=== PATIENT | male | born 1960 | race Hispanic/Latino ===

== ENCOUNTER 2019-11-20 21:49 | Observation (INO) | payer MEDICAID ==
[2019-11-20] MEDS ORDERED: ASPIRIN 325 MG TAB PO ONE (22:14)
[2019-11-20] MEDS ORDERED: NITROGLYCERIN 2% OINT 1 GM TP ONE (22:14)
[2019-11-20] MEDS ORDERED: ONDANSETRON 4 MG/2 ML INJ IV ONE (22:15)
[2019-11-20] MEDS ORDERED: MORPHINE 4 MG/1 ML INJ IV ONE ×2 (22:15→23:44)
--- NOTE | 2019-11-20 22:23 | Emergency Department Report ---
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 Pain described as a constant pain that feels like someone is walking on his chest. Positive nausea with associated vomiting and shortness of breath. Patient received sublingual nitro and aspirin prior to arrival. Patient denies previous history of CAD, smoking, family history of CAD, has never had a stress test or cardiac cath. Patient denies smoking cigarettes and has not abuse any substances in several years. Severity scale (0 -10): 10 - Related Data Home Medications Medication Instructions Recorded Confirmed Last Taken Losartan-Hctz 100-25 mg Tab 25 mg PO ONCE 11/21/19 11/21/19 11/20/19 Lovastatin [Altoprev] 20 mg PO BID 11/21/19 11/21/19 11/20/19 Metoclopramide [Reglan INJ] 10 mg IV PRN 11/21/19 11/21/19 Unknown Omeprazole 40 mg PO ONCE 11/21/19 11/21/19 11/20/19 QUEtiapine [SEROquel] 100 mg PO BID 11/21/19 11/21/19 11/20/19 Sucralfate 1 mg PO BID 11/21/19 11/21/19 11/20/19 Sucralfate [Carafate] 1 gm PO BID 11/21/19 11/21/19 11/20/19 glyBURIDE [Glyburide] 1.25 mg PO DAILY 11/21/19 11/21/19 11/20/19 1.25mg Allergies Allergy/AdvReac Type Severity Reaction Status Date / Time No Known Allergies Allergy Verified 11/21/19 00:34 Heart Score - HEART Score History: Moderately suspicious EKG: Significant ST-depression Age: 45-65 Risk factors: > 3 risk factors or hx of atherosclerotic disease Troponin: < normal limit HEART Score: 6 ED Review of Systems ROS: Stated complaint: CHEST PAIN Other details as noted in HPI Comment: All other systems reviewed and negative ED Past Medical Hx - Past Medical History Previous Medical History?: Yes Hx Hypertension: Yes Hx Diabetes: Yes - Surgical History Past Surgical History?: Yes Additional Surgical History: bilat BKA - Social History Smoking Status: Unknown if ever smoked Substance Use Type: None - Medications Home Medications: Home Medications Medication Instructions Recorded Confirmed Last Taken Type Losartan-Hctz 100-25 mg Tab 25 mg PO ONCE 11/21/19 11/21/19 11/20/19 History Lovastatin [Altoprev] 20 mg PO BID 11/21/19 11/21/19 11/20/19 History Metoclopramide [Reglan INJ] 10 mg IV PRN 11/21/19 11/21/19 Unknown History Omeprazole 40 mg PO ONCE 11/21/19 11/21/19 11/20/19 History QUEtiapine [SEROquel] 100 mg PO BID 11/21/19 11/21/19 11/20/19 History Sucralfate 1 mg PO BID 11/21/19 11/21/19 11/20/19 History Sucralfate [Carafate] 1 gm PO BID 11/21/19 11/21/19 11/20/19 History glyBURIDE [Glyburide] 1.25 mg PO DAILY 11/21/19 11/21/19 11/20/19 History 1.25mg ED Physical Exam - General Limitations: No Limitations - Other Other exam information: General: Mild distress secondary to pain, nausea, and vomiting Head: Atraumatic Eyes: normal appearance ENT: Moist mucous membranes Neck: Normal appearance, no midline tenderness Chest: Clear to auscultation bilaterally, left-sided upper chest wall tenderness to palpation CV: Regular rate and rhythm Abdomen: Soft, normal bowel sounds, nontender, nondistended, no rebound or guarding Back: Normal inspection Extremity: Bilateral BKA Neuro: Alert O x 3, no facial asymmetry, speech clear, no gross motor sensory deficit Psych: Appropriate behavior Skin: No rash ED Course Vital Signs 11/20/19 11/20/19 11/20/19 22:09 22:14 23:00 Temperature 97.6 F Pulse Rate 92 H 86 Respiratory 14 14 15 Rate Blood Pressure 147/78 135/82 Blood Pressure 147/78 [Right] O2 Sat by Pulse 98 98 95 Oximetry 11/20/19 11/20/1920 23:19 23:30 00:00 Temperature Pulse Rate 83 82 81 Respiratory 15 16 14 Rate Blood Pressure 135/82 129/83 134/82 Blood Pressure [Right] O2 Sat by Pulse 94 95 95 Oximetry 11/21/19 11/21/19 11/21/19 00:30 01:00 01:31 Temperature Pulse Rate 85 86 86 Respiratory 15 15 14 Rate Blood Pressure 137/75 139/82 125/68 Blood Pressure [Right] O2 Sat by Pulse 95 94 96 Oximetry 11/21/19 11/21/19 02:00 02:30 Temperature Pulse Rate 87 83 Respiratory 13 13 Rate Blood Pressure 115/66 120/73 Blood Pressure [Right] O2 Sat by Pulse 96 96 Oximetry - Reevaluation(s) Reevaluation #1: 11/20/19 23:45 Patient received morphine 4 mg, Zofran 4 mg, and Nitropaste and pain decreased from 05/27-03/26 - Consultations Consultation #1: 11/20/19 23:[address] Gonzalez on-call calibration specialist who agrees the patient does have some ST depression in 1 and aVL. Does not recommend heparin or Lovenox at this time. If enzymes begin to increase he recommends heparin drip be initiated at that time. AMANDA score - Amanda Score Age > 65: (0) No Aspirin use within the Past 7 Days: (0) No 3 or more CAD Risk Factors: (1) Yes 2 or more Angina events in past 24 hrs: (1) Yes Known CAD with more than 50% Stenosis: (0) No Elevated Cardiac Markers: (0) No ST Deviation Greater than 0.5mm: (0) No AMANDA Score: 2 ED Medical Decision Making - Lab Data Result diagrams: 11/20/19 22:32 11/20/19 22:32 Lab Results 11/20/19 11/20/19 11/20/19 Range/Units 22:32 22:32 22:32 WBC 11.1 H (4.5-11.0) K/mm3 RBC 4.87 (3.65-5.03) M/mm3 Hgb 14.4 (11.8-15.2) gm/dl Hct 41.8 (35.5-45.6) % MCV 86 (84-94) fl MCH 30 (28-32) pg MCHC 35 H (32-34) % RDW 14.4 (13.2-15.2) % Plt Count 224 (140-440) K/mm3 Lymph % (Auto) 10.6 L (13.4-35.0) % [place] % (Auto) 5.8 (0.0-7.3) % Eos % (Auto) 3.9 (0.0-4.3) % Baso % (Auto) 0.5 (0.0-1.8) % Lymph # 1.2 (1.2-5.4) K/mm3 [place] # 0.6 (0.0-0.8) K/mm3 Eos # 0.4 (0.0-0.4) K/mm3 Baso # 0.1 (0.0-0.1) K/mm3 Seg Neutrophils % 79.2 H (40.0-70.0) % Seg Neutrophils # 8.8 H (1.8-7.7) K/mm3 PT 12.6 (12.2-14.9) Sec. INR 0.93 (0.87-1.13) APTT 28.6 (24.2-36.6) Sec. Sodium 140 (137-145) mmol/L Potassium 3.9 (3.6-5.0) mmol/L Chloride 102.7 (98-107) mmol/L Carbon Dioxide 23 (22-30) mmol/L Anion Gap 18 mmol/L BUN 16 (9-20) mg/dL Creatinine 1.0 (0.8-1.5) mg/dL Estimated GFR > 60 ml/min BUN/Creatinine Ratio 16 % Glucose 232 H (75-100) mg/dL Calcium 9.1 (8.4-10.2) mg/dL Total Bilirubin 0.30 (0.1-1.2) mg/dL AST 19 (5-40) units/L ALT 14 (7-56) units/L Alkaline Phosphatase 93 (35-129) units/L Troponin T 0.012 (0.00-0.029) ng/mL Total Protein 7.2 (6.3-8.2) g/dL Albumin 3.9 (3.9-5) g/dL Albumin/Globulin Ratio 1.2 % - EKG Data -: EKG Interpreted by [facility] EKG shows normal: sinus rhythm, ST-T waves (Mild ST depression in 1 and aVL, no ST elevation) Rate: normal (92) - EKG Data When compared to previous EKG there are: previous EKG unavailable - Radiology Data Radiology results: report reviewed CHEST 1 VIEW INDICATION / CLINICAL INFORMATION: Chest Pain. COMPARISON: None available. FINDINGS: SUPPORT DEVICES: None. HEART / MEDIASTINUM: No significant abnormality. LUNGS / PLEURA: No significant pulmonary or pleural abnormality. No pneumothorax. ADDITIONAL FINDINGS: No significant additional findings. IMPRESSION: 1. No significant change - Medical Decision Making Patient presents with cardiac risk factors and chest pain and mild depression in the lateral leads. Case discussed with calibration specialist on-call and does not recommend intervention or anti-coagulants at this time. Patient was provided aspirin prior to arrival and Nitropaste, morphine, and Zofran in the ED. Front Desk Worker Dr. Gonzalez recommends heparin if cardiac enzymes increase. Plan to admit patient to the hospitalist service for admission - Differential Diagnosis UT, unstable angina, atypical chest pain, costochondritis Critical Care Time: No Critical care attestation.: If time is entered above; I have spent that time in minutes in the direct care of this critically ill patient, excluding procedure time. ED Disposition Clinical Impression: Chest pain, Diabetes, History of below-knee amputation of both lower extremities Disposition: -09 OP ADMIT IP TO THIS HOSP Is pt being admited?: Yes Condition: Stable Time of Disposition: 23:56 (Dr Roach/[facility])
[2019-11-20 22:47] LABS: Basophils # (Auto) 0.1 K/mm3 (0.0-0.1); Basophils % (Auto) 0.5 % (0.0-1.8); Eosinophils # (Auto) 0.4 K/mm3 (0.0-0.4); Eosinophils % (Auto) 3.9 % (0.0-4.3); Hematocrit 41.8 % (35.5-45.6); Hemoglobin 14.4 gm/dl (11.8-15.2); Lymphocytes # (Auto) 1.2 K/mm3 (1.2-5.4); Lymphocytes % (Auto) 10.6 % (13.4-35.0); Mean Corpuscular HGB Conc 35 % (32-34); Mean Corpuscular Volume 86 fl (84-94); Monocytes # (Auto) 0.6 K/mm3 (0.0-0.8); Monocytes % (Auto) 5.8 % (0.0-7.3); Platelet Count 224 K/mm3 (140-440); Red Blood Count 4.87 M/mm3 (3.65-5.03); Red Cell Distribution Width 14.4 % (13.2-15.2)
[2019-11-20 22:56] LABS: INR 0.93 (0.87-1.13); Partial Thromboplastin Time 28.6 Sec. (24.2-36.6)
[2019-11-20 23:12] LABS: Alanine Aminotransferase 14 units/L (7-56); Albumin 3.9 g/dL (3.9-5); BUN/Creatinine Ratio 16; Blood Urea Nitrogen 16 mg/dL (9-20); Calcium 9.1 mg/dL (8.4-10.2); Hemolysis Index 14
--- NOTE | 2019-11-20 23:42 | XRay Report ---
CHEST 1 VIEW INDICATION / CLINICAL INFORMATION: Chest Pain. COMPARISON: None available. FINDINGS: SUPPORT DEVICES: None. HEART / MEDIASTINUM: No significant abnormality. LUNGS / PLEURA: No significant pulmonary or pleural abnormality. No pneumothorax. ADDITIONAL FINDINGS: No significant additional findings. IMPRESSION: 1. No significant change Signer Name: Anoop García MD Signed: 11/20/2019 11:38 PM Workstation Name: [id number]
[2019-11-21] MEDS ORDERED: MORPHINE 4 MG/1 ML INJ IV PRN (00:20)
[2019-11-21] MEDS ORDERED: ONDANSETRON 4 MG/2 ML INJ IV PRN (00:20)
[2019-11-21] MEDS ORDERED: ACETAMINOPHEN 325 MG TAB PO PRN (00:20)
[2019-11-21] MEDS ORDERED: NITROGLYCERIN 0.4 MG TAB SUBL SL PRN (00:20)
[2019-11-21] MEDS ORDERED: SODIUM CHLORIDE 0.9% 1000 ML 1,000 ML IV SCH (00:30)
--- NOTE | 2019-11-21 00:36 | History and Physical Report ---
History of Present Illness Date of examination: 11/21/19 Date of admission: 11/21/2019 Chief complaint: Chest pain History of present illness: Patient is 59-year-old male with IDDM and hypertension who presents to ER with complaints of chest pain. Patient reports sudden onset of midsternal chest pain, rates it as 8 out of 10, described as crushing , with radiation to the left arm. Patient states worsening symptoms over the last couple hours with his pain accompanied by nausea, sweats and clammy skin. Patient transported to [facility] via private vehicle, seen and evaluated in ED. Patient admitted for further evaluation of his chest pain and had cardiology consult placed in the emergency department. Past History Past Medical History: other (As noted in HPI) Past Surgical History: Other (bilateral BKA) Family history: CAD, diabetes, hypertension Medications and Allergies Allergies Allergy/AdvReac Type Severity Reaction Status Date / Time No Known Allergies Allergy Verified 11/21/19 00:34 Active Meds: Active Medications Acetaminophen (Tylenol) 650 mg PO Q4H PRN PRN Reason: Pain MILD(1-3)/Fever >100.5/HACKETT Aspirin (Ecotrin) 325 mg PO QDAY DALIA Atorvastatin Calcium (Lipitor) 40 mg PO QHS DALIA Famotidine (Pepcid) 10 mg IV BID DALIA Heparin Sodium (Porcine) (Heparin) 5,000 unit SUB-Q Q12HR DALIA Sodium Chloride (Nacl 0.9% 1000 Ml) 1,000 mls @ 125 mls/hr IV DIRECT DALIA Morphine Sulfate (Morphine) 4 mg IV Q4H PRN PRN Reason: Pain , Severe (7-10) Nitroglycerin (Nitrostat) 0.4 mg SL .Q5MIN PRN PRN Reason: Chest Pain Ondansetron HCl (Zofran) 4 mg IV Q8H PRN PRN Reason: Nausea And Vomiting Sodium Chloride (Sodium Chloride Flush Syringe 10 Ml) 10 ml IV BID DALIA Sodium Chloride (Sodium Chloride Flush Syringe 10 Ml) 10 ml IV PRN PRN PRN Reason: LINE FLUSH Exam - Physical Exam Narrative exam: - Physical Exam Narrative exam: General appearance: Present: Mild distress noted - EENT Eyes: Present: PERRL ENT: hearing intact, clear oral mucosa - Neck Neck: Present: supple, normal ROM - Respiratory Respiratory effort: normal Respiratory: bilateral: Clear to auscultation - Cardiovascular Heart Sounds: Present: S1 & S2. Absent: rub, click - Extremities Extremities: biLateral BKA Peripheral Pulses: within normal limits - Abdominal General gastrointestinal: Present: , non-distended, normal bowel sounds genitourinary: Present: normal - Integumentary Integumentary: Present: clear, warm, dry - Musculoskeletal Musculoskeletal: strength equal bilaterally - Psychiatric Psychiatric: appropriate mood/affect, intact judgment & insight - Neurologic Neurologic: CNII-XII intact, moves all extremities - Constitutional Vitals: Temp Pulse Resp BP Pulse Ox 97.6 F 86 15 135/82 95 11/20/19 22:09 11/20/19 23:00 11/20/19 23:00 11/20/19 23:00 11/20/19 23:00 AMANDA score - Amanda Score Age > 65: (0) No Aspirin use within the Past 7 Days: (0) No 3 or more CAD Risk Factors: (1) Yes 2 or more Angina events in past 24 hrs: (1) Yes Known CAD with more than 50% Stenosis: (0) No Elevated Cardiac Markers: (0) No ST Deviation Greater than 0.5mm: (0) No AMANDA Score: 2 Results - Labs CBC & Chem 7: 11/20/19 22:32 11/20/19 22:32 Labs: Laboratory Last Values WBC 11.1 K/mm3 (4.5-11.0) H 11/20/19 22:32 RBC 4.87 M/mm3 (3.65-5.03) 11/20/19 22:32 Hgb 14.4 gm/dl (11.8-15.2) 11/20/19 22:32 Hct 41.8 % (35.5-45.6) 11/20/19 22:32 MCV 86 fl (84-94) 11/20/19 22:32 MCH 30 pg (28-32) 11/20/19 22:32 MCHC 35 % (32-34) H 11/20/19 22:32 RDW 14.4 % (13.2-15.2) 11/20/19 22:32 Plt Count 224 K/mm3 (140-440) 11/20/19 22:32 Lymph % (Auto) 10.6 % (13.4-35.0) L 11/20/19 22:32 [place] % (Auto) 5.8 % (0.0-7.3) 11/20/19 22:32 Eos % (Auto) 3.9 % (0.0-4.3) 11/20/19 22:32 Baso % (Auto) 0.5 % (0.0-1.8) 11/20/19 22:32 Lymph # 1.2 K/mm3 (1.2-5.4) 11/20/19 22:32 Rabun # 0.6 K/mm3 (0.0-0.8) 11/20/19 22: Eos # 0.4 K/mm3 (0.0-0.4) 11/20/19 22: Baso # 0.1 K/mm3 (0.0-0.1) 11/20/19 22: Seg Neutrophils % 79.2 % (40.0-70.0) H 11/20/19 22: Seg Neutrophils # 8.8 K/mm3 (1.8-7.7) H 11/20/19 22:32 PT 12.6 Sec. (12.2-14.9) 11/20/19 22:32 INR 0.93 (0.87-1.13) 11/20/19 22: APTT 28.6 Sec. (24.2-36.6) 11/20/19 22:32 Sodium 140 mmol/L (137-145) 11/20/19 22:32 Potassium 3.9 mmol/L (3.6-5.0) 11/20/19 22:32 Chloride 102.7 mmol/L (98-107) 11/20/19 22:32 Carbon Dioxide 23 mmol/L (22-30) 11/20/19 22:32 Anion Gap 18 mmol/L 11/20/19 22:32 BUN 16 mg/dL (9-20) 11/20/19 22:32 Creatinine 1.0 mg/dL (0.8-1.5) 11/20/19 22:32 Estimated GFR > 60 ml/min 11/20/19 22:32 BUN/Creatinine Ratio 16 % 11/20/19 22:32 Glucose 232 mg/dL (75-100) H 11/20/19 22:32 Calcium 9.1 mg/dL (8.4-10.2) 11/20/19 22:32 Total Bilirubin 0.30 mg/dL (0.1-1.2) 11/20/19 22:32 AST 19 units/L (5-40) 11/20/19 22:32 ALT 14 units/L (7-56) 11/20/19 22:32 Alkaline Phosphatase 93 units/L (35-129) 11/20/19 22:32 Troponin T 0.012 ng/mL (0.00-0.029) 11/20/19 22:32 Total Protein 7.2 g/dL (6.3-8.2) 11/20/19 22:32 Albumin 3.9 g/dL (3.9-5) 11/20/19 22:32 Albumin/Globulin Ratio 1.2 % 11/20/19 22:32 - Imaging and Cardiology EKG: report reviewed (Mild ST depression in 1 and aVL) Chest x-ray: report reviewed Imaging and Cardiology: CHEST 1 VIEW INDICATION / CLINICAL INFORMATION: Chest Pain. COMPARISON: None available. FINDINGS: SUPPORT DEVICES: None. HEART / MEDIASTINUM: No significant abnormality. LUNGS / PLEURA: No significant pulmonary or pleural abnormality. No pneumothorax. ADDITIONAL FINDINGS: No significant additional findings. IMPRESSION: 1. No significant change Assessment and Plan Assessment and plan: Atypical chest pain, -need to rule out ACS -will admit to telemetry bed -monitor with serial CE and EKG -will place on Aspirin, statin -as needed SL NTG and iv morphine for pain -Monitor BP, add betablocker and ACEI if BP tolerates -Cardiology consulted in ED Hypertension -Home meds once reconciled -Monitor BP q shift IDDM -POC BG monitoring -SSI coverage prn DVT prophylaxis -Heparin subcu Advance Directives: No VTE prophylaxis?: Chemical Plan of care discussed with patient/family: Yes
[2019-11-21] MEDS ORDERED: DEXTROSE 50% IN WATER (25GM) 50 ML SYRINGE IV PRN (02:32)
[2019-11-21 07:16] LABS: Chol/HDL Ratio 4.09 %
[2019-11-21] MEDS: INSULIN LISPRO 100 UNIT/ML SUB-Q SCH ×4 (08:17→22:50)
[2019-11-21] MEDS ORDERED: ASPIRIN EC 325 MG TAB PO ONE (08:47)
[2019-11-21] MEDS ORDERED: ASPIRIN EC 325 MG TAB PO SCH (10:00)
[2019-11-21] MEDS: SODIUM CHLORIDE 0.9% 500 ML 500 ML IV SCH ×2 (10:00→10:39)
[2019-11-21] MEDS ORDERED: HEPARIN/NS 5000 UNIT/500ML 1,000 ML IR ONE (10:09)
[2019-11-21] MEDS: fentaNYL 100 MCG/2 ML INJ ONE ×2 (10:37→10:44)
[2019-11-21] MEDS: MIDAZOLAM 2 MG/2 ML INJ ONE ×2 (10:37→10:44)
[2019-11-21] MEDS: VERAPAMIL 5 MG/2 ML INJ ONE ×3 (10:38→10:48)
[2019-11-21] MEDS: LIDOCAINE (2%) 20 MG/1 ML VIAL 20 ML MDV INFILTRATI ONE ×3 (10:38→10:48)
[2019-11-21] MEDS: HEPARIN 10,000 UNITS/10 ML VIAL ONE ×3 (10:38→10:48)
[2019-11-21] MEDS: NITROGLYCERIN SYRINGE 3 ML ONE ×2 (10:39→10:48)
[2019-11-21] MEDS ORDERED: HEPARIN/ 0.45% NACL DRIP 25,000 UNIT/500 ML BAG ONE (10:59)
--- NOTE | 2019-11-21 11:27 | Cardiac Catherization Report ---
CARDIAC CATHETERIZATION REFERRING PHYSICIAN: Dr. Pickens. INDICATION FOR PROCEDURE: The patient is a pleasant 59-year-old male here for chest pain, history of diabetes, bilateral BKA due to diabetes, lives in [place], here with chest pain, abnormal cardiac enzymes, non-STEMI, referred for left heart catheterization. Risks, benefits, and alternatives explained in length prior to obtaining informed consent. PROCEDURE IN DETAIL: The patient was brought to catheterization lab in a postabsorptive state, prepped and draped in sterile fashion. Ignacio's test in right hand was normal. A 2 mL of 2% lidocaine used to anesthetize the right wrist. A standard 6-Kazakh hydrophilic sheath used to cannulate the right radial artery via modified Seldinger technique. All exchanges performed to exchange a J-tip guidewire. JL3.5 catheter was used to engage the left main. No dampening or ventricularization. Cineangiography performed in all projections. JR4 catheters cross the aortic valve under fluoroscopic guidance. Left ventriculography performed in in 30 GARRETT and 30 CAP[place]AN projections via hand injections, catheter flushed. Manual pullback performed with continuous pressure monitoring Catheter used to engage the right coronary. No dampening or ventricularization. Cineangiography performed in all projections. Next, catheter removed from the body of wire, sheath removed. Manual pressure used to achieve hemostasis. DATA: Aortic pressure is 130/70, LV pressure is 130, LVP of 15 mmHg. Left ventriculography revealed normal systolic performance with estimated ejection fraction of 55-60%. No evidence of aortic stenosis. CORONARY ANATOMY: Left main without significant disease, bifurcates left anterior descending and left circumflex. Left circumflex is a moderate sized vessel and OM trunk has a chronic total occlusion in the proximal segment. LAD with an eccentric 70-80% stenosis proximally. Right coronary with a 90% stenosis in the mid segment. AMANDA 3 flow throughout the coronary tree. I directly supervised the administration of moderate sedation from 10:46-11:15 a.m. with fentanyl and Versed. The patient is clinically stable, chest pain free. CONCLUSIONS: Severe and diffuse triple vessel disease with 70-80% proximal LAD, subtotal occlusion of OM1 and 90% mid right coronary, AMANDA 3 flow throughout. Preserved LV function. Given his history and diffuse nature of disease, I believe complete revascularization with coronary bypass surgery is the best option. He is clinically stable, chest pain free, electrically stable as well. At this point, we will initiate transfer to [facility] for coronary bypass surgery. Further plans contingent on these results. He will follow up with us in the office afterwards. JOB# [id number] CROW/NTS
[2019-11-21] MEDS ORDERED: FLU VACC QUAD 2019-20 (3 YR UP)/PF 60 MCG/0.5 ML SYRINGE IM ONE (12:00)
[2019-11-21] MEDS: HEPARIN 5,000 UNIT/1 ML VIAL SUB-Q SCH ×2 (12:07→22:50)
[2019-11-21] MEDS: FAMOTIDINE 20 MG/2 ML INJ IV SCH ×2 (12:08→22:52)
--- NOTE | 2019-11-21 14:12 | Progress Note ---
Assessment and Plan Assessment and plan: Chest pain. Continue to follow cardiac isoenzymes and EKG. Continue aspirin and statin. Cardiology consulted and opted for cardiac catheterization. Await results. Hypertension. Continue antihypertensive medications. Diabetes mellitus type 2. Continue sliding scale insulin and Accu-Cheks. History Interval history: No new issues overnight. Hospitalist Physical - Constitutional Vitals: Temp Pulse Resp BP Pulse Ox 98 F 76 19 134/80 95 11/21/19 11:45 11/21/19 14:00 11/21/19 14:00 11/21/19 14:00 11/21/19 14:00 General appearance: Present: no acute distress, well-nourished - EENT Eyes: Present: PERRL, EOM intact ENT: hearing intact, clear oral mucosa, dentition normal - Neck Neck: Present: supple, normal ROM - Respiratory Respiratory effort: normal Respiratory: bilateral: CTA - Cardiovascular Rhythm: regular Heart Sounds: Present: S1 & S2. Absent: gallop, rub - Extremities Extremities: no ischemia, No edema, Full ROM - Abdominal General gastrointestinal: soft, non-tender, non-distended, normal bowel sounds - Integumentary Integumentary: Present: clear, warm, dry - Neurologic Neurologic: CNII-XII intact, moves all extremities AMANDA score - Amanda Score Age > 65: (0) No Aspirin use within the Past 7 Days: (0) No 3 or more CAD Risk Factors: (1) Yes 2 or more Angina events in past 24 hrs: (1) Yes Known CAD with more than 50% Stenosis: (0) No Elevated Cardiac Markers: (0) No ST Deviation Greater than 0.5mm: (0) No AMANDA Score: 2 Results - Labs CBC & Chem 7: 11/20/19 22:32 11/20/19 22:32 Labs: Laboratory Last Values WBC 11.1 K/mm3 (4.5-11.0) H 11/20/19 22:32 RBC 4.87 M/mm3 (3.65-5.03) 11/20/19 22:32 Hgb 14.4 gm/dl (11.8-15.2) 11/20/19 22:32 Hct 41.8 % (35.5-45.6) 11/20/19 22:32 MCV 86 fl (84-94) 11/20/19 22:32 MCH 30 pg (28-32) 11/20/19: MCHC 35 % (32-34) H 11/20/19: RDW 14.4 % (13.2-15.2) 11/20/19: Plt Count 224 K/mm3 (140-440) 11/20/19 22: Lymph % (Auto) 10.6 % (13.4-35.0) L 11/20/19: Grand % (Auto) 5.8 % (0.0-7.3) 11/20/19: Eos % (Auto) 3.9 % (0.0-4.3) 11/20/19: Baso % (Auto) 0.5 % (0.0-1.8) 11/20/19: Lymph # 1.2 K/mm3 (1.2-5.4) 11/20/19: Grand # 0.6 K/mm3 (0.0-0.8) 11/20/19: Eos # 0.4 K/mm3 (0.0-0.4) 11/20/19: Baso # 0.1 K/mm3 (0.0-0.1) 11/20/19: Seg Neutrophils % 79.2 % (40.0-70.0) H 11/20/19: Seg Neutrophils # 8.8 K/mm3 (1.8-7.7) H 11/20/19: PT 12.6 Sec. (12.2-14.9) 11/20/19: INR 0.93 (0.87-1.13) 11/20/19: APTT 28.6 Sec. (24.2-36.6) 11/20/19: Sodium 140 mmol/L (137-145) 11/20/19: Potassium 3.9 mmol/L (3.6-5.0) 11/20/19: Chloride 102.7 mmol/L (98-107) 11/20/19: Carbon Dioxide 23 mmol/L (22-30) 11/20/19: Anion Gap 18 mmol/L 03/05/20 22:32 BUN 16 mg/dL (9-20) 11/20/19 22:32 Creatinine 1.0 mg/dL (0.8-1.5) 11/20/19 22:32 Estimated GFR > 60 ml/min 11/20/19 22:32 BUN/Creatinine Ratio 16 % 11/20/19 22:32 Glucose 232 mg/dL (75-100) H 11/20/19 22:32 POC Glucose 128 (70-105) H 11/21/19 12:26 Calcium 9.1 mg/dL (8.4-10.2) 11/20/19 22:32 Total Bilirubin 0.30 mg/dL (0.1-1.2) 11/20/19 22:32 AST 19 units/L (5-40) 11/20/19 22:32 ALT 14 units/L (7-56) 11/20/19 22:32 Alkaline Phosphatase 93 units/L (35-129) 11/20/19 22:32 Troponin T 0.587 ng/mL (0.00-0.029) H* D 11/21/19 05:56 Total Protein 7.2 g/dL (6.3-8.2) 11/20/19 22:32 Albumin 3.9 g/dL (3.9-5) 11/20/19 22:32 Albumin/Globulin Ratio 1.2 % 11/20/19 22:32 Triglycerides 260 mg/dL (2-149) H 11/21/19 05:56 Cholesterol 176 mg/dL (50-199) 11/21/19 05:56 LDL Cholesterol Direct 109 mg/dL (50-130) 11/21/19 05:56 HDL Cholesterol 43 mg/dL (40-59) 11/21/19 05:56 Cholesterol/HDL Ratio 4.09 % 11/21/19 05:56 Active Medications - Current Medications Current Medications: Generic Name Dose Route Start Last Admin Trade Name Freq PRN Reason Stop Dose Admin Acetaminophen 650 mg 11/21/19 00:20 Tylenol PO Q4H PRN Pain MILD(1-3)/Fever >100.5/HACKETT Aspirin 325 mg 11/21/19 10:00 11/21/19 09:57 Ecotrin PO 325 mg QDAY DALIA Administration Atorvastatin Calcium 40 mg 11/21/19 22:00 Lipitor PO QHS DALIA Dextrose 50 ml 11/21/19 02:32 D50w (25gm) Syringe IV Q30MIN PRN Hypoglycemia Protocol Famotidine 10 mg 11/21/19 10:00 11/21/19 12:08 Pepcid IV 10 mg BID DALIA Administration Heparin Sodium (Porcine) 5,000 unit 11/21/19 10:00 11/21/19 12:07 Heparin SUB-Q 5,000 unit Q12HR DALIA Administration Sodium Chloride 1,000 mls @ 125 mls/hr 11/21/19 00:30 Nacl 0.9% 1000 Ml IV DIRECT DALIA Sodium Chloride 500 mls @ 50 mls/hr 11/21/19 09:00 11/21/19 10:39 Nacl 0.9% 500 Ml IV 50 mls/hr DIRECT DALIA Administration Insulin Human Lispro 0 unit 11/21/19 07:30 11/21/19 13:14 Humalog SUB-Q Not Given ACHS DALIA Protocol Morphine Sulfate 4 mg 11/21/19 00:20 11/21/19 04:08 Morphine IV 4 mg Q4H PRN Administration Pain , Severe (7-10) Nitroglycerin 0.4 mg 11/21/19 00:20 Nitrostat SL .Q5MIN PRN Chest Pain Ondansetron HCl 4 mg 11/21/19 00:20 Zofran IV Q8H PRN Nausea And Vomiting Sodium Chloride 10 ml 11/21/19 10:00 11/21/19 12:09 Sodium Chloride Flush Syringe 10 Ml IV 10 ml BID DALIA Administration Sodium Chloride 10 ml 11/21/19 00:20 Sodium Chloride Flush Syringe 10 Ml IV PRN PRN LINE FLUSH
[2019-11-21] MEDS ORDERED: METOCLOPRAMIDE 10 MG/2 ML INJ IV PRN (18:37)
--- NOTE | 2019-11-21 20:22 | Consultation ---
CARDIOLOGY CONSULTATION Room 486. REFERRING PHYSICIAN: Hospitalist service. REASON FOR CONSULTATION: Advanced appearing chest pain. HISTORY OF PRESENT ILLNESS: The patient is a very pleasant 59-year-old gentleman with a history of insulin-dependent diabetes, hypertension, peripheral vascular disease, who presents here for chest pain, shortness of breath. He was here visiting with his daughter lives in [place], [place]. He has a history of uncontrolled diabetes, bilateral BKA due to peripheral vascular disease. He is seen in the stress lab. Troponin is mildly elevated. He has 2 out of 10 chest pain radiating to left arm. This is new for him. Occasional nausea. No syncope or presyncope. No rash, fevers or chills. PAST MEDICAL HISTORY: As aforementioned. SOCIAL HISTORY: As aforementioned. FAMILY HISTORY: CAD, diabetes. He is a nonsmoker. ALLERGIES: No known drug, food, or environmental allergies. MEDICATIONS: Inpatient and outpatient medications are reviewed. Of note, he is on aspirin and statin therapy. PHYSICAL EXAMINATION: VITAL SIGNS: Blood pressure is 120/80. He is afebrile. Tele reveals sinus rhythm, no dysrhythmias. O2 sat is 99% on room air. GENERAL: This is a middle-aged gentleman, in no apparent distress, oriented x 3. HEENT: Sclerae are anicteric. PERRLA. NECK: Supple, no masses, no JVD. CHEST: Clear to auscultation bilaterally. Good air movement. CARDIOVASCULAR: Regular rhythm, S1, S2. ABDOMEN: Soft, nontender, nondistended. Normoactive bowel sounds in all 4 quadrants. EXTREMITIES: No cyanosis, clubbing, edema. Good peripheral pulses. SKIN: No rashes. Bilateral BKA stumps are clean. DIAGNOSTIC DATA: ECG, normal sinus rhythm without acute EKG changes. There is mild ST depression 1 and aVL. WBC is 11.1, hemoglobin 14, hematocrit 41, platelets 224, creatinine 1.0. Troponin was initially 0.01 and 0.58. LDL is 109, HDL 43. Coags are normal. CONCLUSIONS: In summary, the patient is a very pleasant 59-year-old gentleman: 1. Chest pain with typical features and findings consistent with non-ST elevation myocardial infarction. 2. History of peripheral vascular disease and resultant bilateral below-knee amputation. 3. Uncontrolled insulin-dependent diabetes. Given vasculopathy, presence of non-STEMI presentation, we discussed the options. We will proceed with a left heart catheterization. Risks, benefits, alternatives were discussed at length prior to obtaining informed consent. Further plans continued on cath results. Thank you for this consultation. JOB# [id number] CROW/NTS
[2019-11-21 20:27] VITALS: BP 153/81
--- NOTE | 2019-11-22 09:53 | Discharge Summary ---
Providers - Providers Date of Admission: 11/21/19 00:20 Date of discharge: 11/21/19 Attending physician: [facility] 11/21/19 Consult to Cardiac Rehabilitation [CONS] Routine Reason For Exam: Phase 1 11/21/19 00:09 Consult to Physician [CONS] Urgent Comment: Dr. Rodriguez spoke with Dr. Nelson @ [phone] Consulting Provider: ANH NELSON Physician Instructions: Reason For Exam: chest pain Primary care physician: [employer] Hospitalization Reason for admission: cp Condition: Stable Hospital course: 59-year-old male with past medical history of diabetes mellitus type 2, bilateral BKA who presented through the emergency department with complaints of chest pain. Patient was found to have abnormal cardiac isoenzymes and was admitted with diagnosis of acute NSTEMI. Patient underwent left heart catheterization which revealed severe diffuse triple-vessel disease with 70 to 80% proximal LAD, subtotal occlusion of OM1 and 90% mid right coronary. Patient had preserved LV function. Cardiology felt that given the nature of his disease that complete revascularization with coronary bypass surgery was the best option. Therefore, patient was transferred to [facility] [place] for further evaluation with CT surgery. Dedicated discharge time 35 minutes. Disposition: [id number] [facility] Time spent for discharge: 35 - Discharge Diagnoses (1) Triple vessel coronary artery disease Status: Acute (2) Chest pain Status: Acute (3) Diabetes Status: Acute (4) History of below-knee amputation of both lower extremities Status: Acute (5) NSTEMI (non-ST elevated myocardial infarction) Status: Acute Core Measure Documentation - Palliative Care Palliative Care/ Comfort Measures: Not Applicable - Core Measures Any of the following diagnoses?: none Exam - Constitutional Vitals: Temp Pulse Resp BP Pulse Ox 98.1 F 81 16 153/81 93 11/21/19 19:34 11/22/19 00:00 11/21/19 19:34 11/21/19 19:34 11/21/19 19:34 General appearance: Present: no acute distress, well-nourished - EENT Eyes: Present: PERRL ENT: hearing intact, clear oral mucosa - Neck Neck: Present: supple, normal ROM - Respiratory Respiratory effort: normal Respiratory: bilateral: CTA - Cardiovascular Heart Sounds: Present: S1 & S2. Absent: rub, click - Extremities Extremities: pulses symmetrical, No edema Peripheral Pulses: within normal limits - Abdominal General gastrointestinal: Present: soft, non-tender, non-distended, normal bowel sounds Male genitourinary: Present: normal - Integumentary Integumentary: Present: clear, warm, dry - Musculoskeletal Musculoskeletal: gait normal, strength equal bilaterally - Psychiatric Psychiatric: appropriate mood/affect, intact judgment & insight - Neurologic Neurologic: CNII-XII intact, moves all extremities Plan Activity: advance as tolerated Weight Bearing Status: Weight Bear as Tolerated Diet: low fat, low cholesterol, low salt Follow up with: PRIMARY CARE, [Primary Care Provider] - 7 Days
== END 2019-11-21 22:00 | disposition other institution (70) ==
LOC: ED 21:49 → 4A 11-21 00:20
PROVIDERS: ADMIT Hospitalist; ATTEND Hospitalist
DX: R07.89 Other chest pain (principal); I10 Essential (primary) hypertension; E11.9 Type 2 diabetes mellitus without complications; Z79.82 Long term (current) use of aspirin; Z89.512 Acquired absence of left leg below knee; Z89.511 Acquired absence of right leg below knee; Z79.4 Long term (current) use of insulin
CPT/HCPCS: 36415; 71045; 80053; 80061; 82962; 84484; 85025; 85520; 85610; 85730; 90686; 93005; 93010; 93306; 93452; 96372; 96374; 96375; 96376; G0378; J1644; J2250; J2270; J2405; J2765; J3010; J7030; J7040; 93458; C1894; Q9967